=== PATIENT | female | born 1975 | race Caucasian/White ===

== ENCOUNTER 2017-09-06 10:37 | Emergency (ER) | payer MEDICAID, OTHER ==
[2017-09-06] MEDS ORDERED: ZOFRAN IV ONE (11:46)
[2017-09-06] MEDS ORDERED: PROTONIX IV ONE (11:46)
[2017-09-06] MEDS ORDERED: TORADOL IV ONE (11:46)
[2017-09-06] MEDS ORDERED: MORPHINE IV ONE (11:46)
[2017-09-06] MEDS ORDERED: NACL 0.9% 1000 ML 1,000 ML IV ONE (11:46)
--- NOTE | 2017-09-06 11:46 | Emergency Department Report ---
Chief Complaint: Abdominal Pain Stated Complaint: FLU LIKE SYMPTOMS Time Seen by Provider: 09/06/17 11:44 - HPI History of Present Illness: Patient is a 42-year-old female who is presenting symptoms this morning with nausea vomiting and abdominal pain. Patient states the pain is 10 out of 10 in the epigastrium with radiation to her back. Patient denies alcohol use. Also is complaining of a headache and some mild diarrhea. Patient denies fever at this time also denies cough. History is slightly limited her inability to speak fluent Kyr[place]z - Exam Vital Signs: Vital Signs 09/06/17 10:45 Temperature 98.8 F Pulse Rate 118 H Respiratory 18 Rate Blood Pressure 114/68 O2 Sat by Pulse 100 Oximetry Physical Exam: Focused physical exam patient has epigastric tenderness normal bowel sounds in moderate distress secondary to pain. MSE screening note: Focused history and physical exam performed. Due to findings the following was ordered: The abdominal order set has been ordered pain meds have been given patient was moved to the main for further care ED Disposition for MSE Condition: Stable Instructions: Abdominal Pain (ED) Referrals: CHAD DUVALL MD [Primary Care Provider] - 3-5 Days
[2017-09-06 12:13] LABS: Basophils % (Auto) 0.5 % (0.0-1.8); Eosinophils % (Auto) 1.2 % (0.0-4.3); Hematocrit 40.4 % (30.3-42.9); Hemoglobin 13.3 gm/dl (10.1-14.3); Mean Corpuscular HGB Conc 33 % (30-34); Mean Corpuscular Hemoglobin 28 pg (28-32); Mean Corpuscular Volume 85 fl (79-97); Platelet Count 306 K/mm3 (140-440); Red Blood Count 4.74 M/mm3 (3.65-5.03); Red Cell Distribution Width 13.6 % (13.2-15.2); White Blood Count 9.9 K/mm3 (4.5-11.0)
[2017-09-06 12:18] VITALS: BP 110/62
--- NOTE | 2017-09-06 12:31 | Emergency Department Report ---
ED Abdominal Pain HPI - General Chief Complaint: Abdominal Pain Stated Complaint: FLU LIKE SYMPTOMS Time Seen by Provider: 09/06/17 11:44 Source: patient Mode of arrival: Ambulatory Limitations: No Limitations - History of Present Illness Initial Comments: Patient is 42 years old female with no significant past medical history she presented to the ER with sudden epigastric abdominal pain that radiates to her suprapubic area. Pain comes and goes, not associated with nausea or vomiting. Patient stated that she is on her period. She denied any fever or diarrhea. MD Complaint: abdominal pain -: Sudden, This morning Location: epigastric Radiation: suprapubic Migration to: no migration Severity: moderate Severity scale (0 -10): 10 Quality: stabbing - Related Data Previous Rx's Medication Instructions Recorded Last Taken Type Hydrocodone Bit/Acetaminophen 1 each PO Q6HR PRN #15 tablet 09/27/13 Unknown Rx [Lortab 7.5-500 mg] Prednisone 20 mg PO QDAY #5 tablet 09/27/13 Unknown Rx methOCARBAMOL [Robaxin] 500 mg PO BID #14 tab 09/27/13 Unknown Rx traMADol [Ultram 50 MG tab] 50 mg PO Q6HR PRN #20 tablet 04/28/14 Unknown Rx Allergies Allergy/AdvReac Type Severity Reaction Status Date / Time aspirin Allergy Swelling Verified 09/27/13 15:46 Sulfa (Sulfonamide Allergy Unknown Verified 09/27/13 15:46 Antibiotics) ED Review of Systems ROS: Stated complaint: FLU LIKE SYMPTOMS Other details as noted in HPI Comment: All other systems reviewed and negative Constitutional: denies: chills, fever Respiratory: denies: cough, shortness of breath, SOB with exertion, SOB at rest Cardiovascular: denies: chest pain, palpitations Gastrointestinal: abdominal pain. denies: nausea, vomiting, diarrhea, constipation, hematemesis, melena, hematochezia Genitourinary: denies: urgency, dysuria, frequency, hematuria Musculoskeletal: denies: back pain, joint swelling Neurological: denies: headache, weakness, numbness, paresthesias ED Past Medical Hx - Past Medical History Previous Medical History?: Yes Additional medical history: anxiety - Surgical History Past Surgical History?: Yes Additional Surgical History: tubal ligation - Social History Smoking Status: Never Smoker Substance Use Type: None - Medications Home Medications: Home Medications Medication Instructions Recorded Confirmed Last Taken Type Hydrocodone Bit/Acetaminophen 1 each PO Q6HR PRN #15 tablet 09/27/13 Unknown Rx [Lortab 7.5-500 mg] Prednisone 20 mg PO QDAY #5 tablet 09/27/13 Unknown Rx methOCARBAMOL [Robaxin] 500 mg PO BID #14 tab 09/27/13 Unknown Rx traMADol [Ultram 50 MG tab] 50 mg PO Q6HR PRN #20 tablet 04/28/14 Unknown Rx ED Physical Exam - General Limitations: No Limitations General appearance: alert, in distress (moderate distress secondary to pain) - Head Head exam: Present: atraumatic, normocephalic - Eye Eye exam: Present: normal appearance - ENT ENT exam: Present: normal exam - Neck Neck exam: Present: normal inspection - Respiratory Respiratory exam: Present: normal lung sounds bilaterally - Cardiovascular Cardiovascular Exam: Present: tachycardia - GI/Abdominal GI/Abdominal exam: Present: soft, tenderness (suprapubic), normal bowel sounds. Absent: distended, guarding, rebound, rigid, organomegaly, mass, bruit, pulsatile mass, hernia - Extremities Exam Extremities exam: Present: normal inspection, normal capillary refill. Absent: tenderness, pedal edema, calf tenderness - Back Exam Back exam: Present: normal inspection. Absent: CVA tenderness (R), CVA tenderness (L) - Neurological Exam Neurological exam: Present: alert, oriented X3, CN II-XII intact, normal gait - Skin Skin exam: Present: warm, intact, normal color. Absent: cyanosis ED Course Vital Signs 09/06/17 09/06/17 09/06/17 10:45 11:48 12:07 Temperature 98.8 F Pulse Rate 118 H Respiratory 18 18 22 Rate Blood Pressure 114/68 Blood Pressure [Right] O2 Sat by Pulse 100 100 Oximetry 09/06/17 09/06/17 12:08 12:17 Temperature 98.7 F Pulse Rate 94 H Respiratory 20 16 Rate Blood Pressure Blood Pressure 110/62 [Right] O2 Sat by Pulse 100 Oximetry - Reevaluation(s) Reevaluation #1: 09/06/17 18:11 Patient stated that she is feeling better, I informed her about her CT abdomen and pelvis results and her ultrasound results and the need to follow up with a ranch helper.. ED Medical Decision Making - Lab Data Result diagrams: 09/06/17 11:55 12/14/17 11:55 - Radiology Data Radiology results: report reviewed Referring Physician: CHARLIE WHITE Patient Name: KATE GONZALES Date of : 1975 Sex: Female Report Date: 2017-09-06 Report Status: Finalized Findings [facility] [address] [place] [address] Cat Scan Report Signed Patient: KATE GONZALES MR#: [id number] : 1975 Acct:[id number] Age/Sex: 42 / F ADM Date: 09/06/17 Loc: ED Attending Dr: Ordering Physician: CHARLIE WHITE MD Date of Service: 09/06/17 Procedure(s): CT abdomen pelvis w con Accession Number(s): [id number] cc: CHARLIE WHITE MD FINAL REPORT EXAM: CT ABDOMEN PELVIS W CON HISTORY: Abdominal Pain TECHNIQUE: CT of the abdomen and pelvis was performed after the administration of intravenous contrast. Subsequently, CT of the abdomen and pelvis was performed in the delayed phase. Reconstructions were included in the coronal and sagittal planes. PRIORS: None. FINDINGS: Lower thorax: The lung bases are clear. The visualized portions of the heart are normal. Liver: The liver is normal in attenuation. No intrahepatic biliary duct dilation. No focal hepatic lesions. Gallbladder/ biliary system: No cholelithiasis. The common bile duct appears nondilated. Spleen: No splenic lesions are seen. Pancreas: No pancreatic lesions are seen. No pancreatic duct dilation. Kidneys: No renal masses, cysts or hydronephrosis. Adrenal glands: No adrenal masses. Vasculature: The abdominal and pelvic vasculature is patent without variant anatomy. Lymph nodes: No enlarged lymph nodes are seen in the abdomen or pelvis. Bowel, mesentery, peritoneum: No bowel obstruction. No free fluid or free air. The appendix is normal. No colonic diverticulosis. No bowel wall thickening. Urinary bladder: No filling defects are seen. Pelvis: There is nonspecific prominence of the uterine cervix. Probable fundal uterine fibroid is seen. Abdominal wall: No abdominal wall hernia or other subcutaneous findings. Bones: No acute or chronic osseous finding. IMPRESSION: Nonspecific prominence of the uterine cervix. Cannot exclude underlying neoplasm. Recommend further evaluation with pelvic ultrasound and likely correlation with visual examination. Transcribed By: MG Dictated By: MIRLANDE SHERMAN MD Electronically Authenticated By: MIRLANDE SHERMAN MD Signed Date/Time: 09/06/171006 DD/ 06 - Medical Decision Making Patient stated that she is feeling better. I advised that follow-up with a ranch helper and I will give her Dr. Cisneros to follow-up with. Critical care attestation.: If time is entered above; I have spent that time in minutes in the direct care of this critically ill patient, excluding procedure time. ED Disposition Clinical Impression: Abdominal pain, Uterine fibroid, UTI (urinary tract infection) Disposition: - TO HOME OR SELFCARE Is pt being admited?: No Condition: Stable Instructions: Uterine Fibroids (ED), Urinary Tract Infection in Women (ED), Abdominal Pain (ED) Referrals: FER CISNEROS MD [Staff Physician] - 3-5 Days
[2017-09-06 12:38] LABS: Alanine Aminotransferase 11 units/L (7-56); Albumin 4.3 g/dL (3.9-5); Albumin/Globulin Ratio 1.1 %; Alkaline Phosphatase 40 units/L (35-129); Anion Gap 18 mmol/L; BUN/Creatinine Ratio 24; Bilirubin,Direct 0.2 mg/dL (0-0.2); Bilirubin,Indirect 0.9 mg/dL; Blood Urea Nitrogen 12 mg/dL (7-17); Carbon Dioxide 24 mmol/L (22-30); Chloride 98.7 mmol/L (98-107); Glucose 89 mg/dL (65-100); Lipase 18 units/L (13-60); Potassium 3.8 mmol/L (3.6-5.0); Sodium 137 mmol/L (137-145); Total Protein 8.2 g/dL (6.3-8.2)
--- NOTE | 2017-09-06 14:10 | Cat Scan Report ---
FINAL REPORT EXAM: CT ABDOMEN PELVIS W CON HISTORY: Abdominal Pain TECHNIQUE: CT of the abdomen and pelvis was performed after the administration of intravenous contrast. Subsequently, CT of the abdomen and pelvis was performed in the delayed phase. Reconstructions were included in the coronal and sagittal planes. PRIORS: None. FINDINGS: Lower thorax: The lung bases are clear. The visualized portions of the heart are normal. Liver: The liver is normal in attenuation. No intrahepatic biliary duct dilation. No focal hepatic lesions. Gallbladder/ biliary system: No cholelithiasis. The common bile duct appears nondilated. Spleen: No splenic lesions are seen. Pancreas: No pancreatic lesions are seen. No pancreatic duct dilation. Kidneys: No renal masses, cysts or hydronephrosis. Adrenal glands: No adrenal masses. Vasculature: The abdominal and pelvic vasculature is patent without variant anatomy. Lymph nodes: No enlarged lymph nodes are seen in the abdomen or pelvis. Bowel, mesentery, peritoneum: No bowel obstruction. No free fluid or free air. The appendix is normal. No colonic diverticulosis. No bowel wall thickening. Urinary bladder: No filling defects are seen. Pelvis: There is nonspecific prominence of the uterine cervix. Probable fundal uterine fibroid is seen. Abdominal wall: No abdominal wall hernia or other subcutaneous findings. Bones: No acute or chronic osseous finding. IMPRESSION: Nonspecific prominence of the uterine cervix. Cannot exclude underlying neoplasm. Recommend further evaluation with pelvic ultrasound and likely correlation with visual examination.
[2017-09-06 15:03] LABS: Bilirubin,Urine NEG (Negative); Blood,Urine LG (Negative); Ketones,Urine NEG (Negative); Leukocyte Esterase,Urine NEG (Negative); Nitrite,Urine NEG (Negative); Urobilinogen,Urine < 2.0 mg/dL (<2.0)
[2017-09-06] MEDS ORDERED: TYLENOL PO ONE (18:02)
--- NOTE | 2017-09-06 18:55 | Ultrasound Report ---
FINAL REPORT EXAM: US PELVIC COMPLETE HISTORY: abdominal pain, TECHNIQUE: Grayscale and color doppler ultrasound imaging of the pelvis was performed transabdominally and transvaginally. PRIORS: CT of the abdomen and pelvis from earlier today. FINDINGS: Uterus: 1.4 x 1.0 x 0.9 centimeter fibroid is seen in the posterior aspect of the upper uterine body. The uterus measures 8.6 x 4.6 x 5.7 centimeters. Uterine cervix does not appear enlarged. Several nabothian cysts are present. Endometrium: The endometrium is normal in echogenicity. The endometrium measures 4.4 millimeters. Ovaries: The ovaries are normal in echogenicity without cyst or mass. Dominant left ovarian follicle is seen measuring 7 millimeters. Normal color flow is seen to the left ovary. Doppler interrogation of the right ovary was not performed. The right ovary measures 2.2 x 0.7 x 1.5 centimeters. The left ovary measures 2.8 x 1.1 x 1.4 centimeters. Free fluid: None. IMPRESSION: 1. Small uterine fibroid. 2. Several nabothian cysts. This may have accounted for the appearance on the CT of the abdomen and pelvis. 3. Normal ovaries.
--- NOTE | 2017-09-06 18:55 | Ultrasound Report ---
FINAL REPORT EXAM: US TRANSVAGINAL HISTORY: ABDOMINAL PAIN, abnormal ct pelvis TECHNIQUE: Grayscale and color doppler ultrasound imaging of the pelvis was performed transabdominally and transvaginally. PRIORS: CT of the abdomen and pelvis from earlier today. FINDINGS: Uterus: 1.4 x 1.0 x 0.9 centimeter fibroid is seen in the posterior aspect of the upper uterine body. The uterus measures 8.6 x 4.6 x 5.7 centimeters. Uterine cervix does not appear enlarged. Several nabothian cysts are present. Endometrium: The endometrium is normal in echogenicity. The endometrium measures 4.4 millimeters. Ovaries: The ovaries are normal in echogenicity without cyst or mass. Dominant left ovarian follicle is seen measuring 7 millimeters. Normal color flow is seen to the left ovary. Doppler interrogation of the right ovary was not performed. The right ovary measures 2.2 x 0.7 x 1.5 centimeters. The left ovary measures 2.8 x 1.1 x 1.4 centimeters. Free fluid: None. IMPRESSION: 1. Small uterine fibroid. 2. Several nabothian cysts. This may have accounted for the appearance on the CT of the abdomen and pelvis. 3. Normal ovaries.
== END 2017-09-06 18:30 | disposition home or self-care (01) ==
LOC: ED 10:37
DX: D25.9 Leiomyoma of uterus, unspecified (principal); N39.0 Urinary tract infection, site not specified; F41.9 Anxiety disorder, unspecified; Z88.6 Allergy status to analgesic agent; Z88.2 Allergy status to sulfonamides; Z98.51 Tubal ligation status
CPT/HCPCS: 36415; 74177; 76830; 76856; 80048; 80074; 81001; 83690; 84703; 85025; 96361; 96374; 96375; 99284; C9113; J1885; J2270; J2405; J7030; Q9967